=== PATIENT | female | born 1960 | race Caucasian/White ===

== ENCOUNTER 2017-05-07 10:22 | Inpatient (IN) | payer MEDICARE, OTHER ==
[~2017-05-07] VITALS: Ht 154.9 cm; Wt 53.5 kg
--- NOTE | 2017-05-07 10:43 | NUR ---
DR ROGERS AT THE BEDSIDE FOR EVAL AND EXAM.
[2017-05-07] MEDS ORDERED: LOSA1TAB39 PO (10:46)
[2017-05-07] MEDS ORDERED: MULT1TAB73 PO (10:46)
[2017-05-07] MEDS ORDERED: ASPI81TA31 PO (10:46)
[2017-05-07] MEDS ORDERED: SYMBICORT INH (10:46)
[2017-05-07] MEDS ORDERED: VENL75CA62 PO (10:46)
[2017-05-07] MEDS ORDERED: OXYB5TAB29 PO (10:46)
[2017-05-07] MEDS ORDERED: BACL10TA PO (10:46)
[2017-05-07] MEDS ORDERED: MELA5TAB PO (10:46)
[2017-05-07] MEDS ORDERED: HYDR-551 PO (10:46)
[2017-05-07] MEDS ORDERED: SPIRIVA INH (10:46)
[2017-05-07] MEDS ORDERED: ATOR40TA PO (10:46)
[2017-05-07] MEDS ORDERED: ESOM40CA PO (10:46)
[2017-05-07] MEDS ORDERED: IV NORMAL SALINE 500 ML BAG IV ONE (11:00)
[2017-05-07 11:13] LABS: BASOPHILS % (AUTO) 0.6 % (0.0-2.0); EOSINOPHILS # (AUTO) 0.1 K/uL (0.0-0.7); EOSINOPHILS % (AUTO) 1.5 % (0.0-7.0); HEMATOCRIT 41.5 % (31.2-41.9); HEMOGLOBIN 14.3 g/dL (10.9-14.3); LYMPHOCYTES # (AUTO) 0.9 K/uL (20.0-40.0); MEAN CORPUSCULAR HEMOGLOBIN 32.5 uug (24.7-32.8); MEAN CORPUSCULAR HGB CONC 35 g/dL (32.3-35.6); MEAN CORPUSCULAR VOLUME 94.3 fL (75.5-95.3); MONOCYTES # (AUTO) 0.5 K/uL (2.0-10.0); NEUTROPHILS # (AUTO) 6.1 K/uL (1.8-8.9); NEUTROPHILS % (AUTO) 79.9 % (38.5-71.5); PLATELET COUNT (AUTO) 244 K/uL (179-408); WHITE BLOOD COUNT (AUTO) 7.7 K/uL (3.8-11.8)
[2017-05-07 11:27] LABS: CREATININE 0.5 mg/dL (0.6-1.3); POTASSIUM 3.7 mmol/L (3.5-5.1)
--- NOTE | 2017-05-07 12:00 | NUR ---
BELONGING LIST COMPLETED AND PLACED IN THE CHART. NOT CANDIDATE FOR MRSA.
[2017-05-07 12:37] LABS: *BLOOD, URINE NEGATIVE (NEGATIVE); *CLARITY,URINE CLEAR (CLEAR); *COLOR,URINE YELLOW (YELLOW); *KETONES,URINE NEGATIVE (NEGATIVE); *PROTEIN,URINE NEGATIVE (NEGATIVE); *UROBILINOGEN,URINE 0.2 E.U./dl (NORMAL); LEUKOCYTE ESTERASE ,URINE NEGATIVE (NEGATIVE); NITRITE, URINE NEGATIVE (NEGATIVE); UGLUCOSE NEGATIVE (NEGATIVE)
[2017-05-07 12:39] LABS: *BILIRUBIN,URIN 1+ (NEGATIVE)
[2017-05-07 12:49] LABS: BACTERIA,URINE FEW /HPF (NONE SEEN); RBC,URINE 0-3 /HPF (0-3); SQUAMOUS EPITHELIAL CELL,UR FEW /HPF (NONE SEEN); WBC,URINE 0-3 /HPF (0-3)
[2017-05-07 13:14] VITALS: BP 105/66
[2017-05-07 15:46] VITALS: BP 111/73
[2017-05-07] MEDS ORDERED: HYDROCODONE/APAP 5-325MG TABLET PO PRN (16:15)
[2017-05-07] MEDS: NICOTINE 7 MG/24HR PATCH TD SCH (16:15)
[2017-05-07] MEDS ORDERED: IPRATROPIUM BROMIDE 0.5 MG/2.5 ML NEBU NEB PRN (19:00)
[2017-05-07] MEDS ORDERED: HYDROCODONE/APAP 7.5-325MG TABLET PO PRN (19:00)
[2017-05-07] MEDS ORDERED: ALBUTEROL SULFATE 2.5 MG/3 ML NEBU NEB PRN (19:00)
[2017-05-07] MEDS ORDERED: MAGNESIUM HYDROXIDE 30 ML LIQUID UDC PO PRN (19:15)
[2017-05-07] MEDS ORDERED: ONDANSETRON 4 MG/2 ML VIAL IV PRN (19:15)
[2017-05-07] MEDS ORDERED: ACETAMINOPHEN 325 MG TABLET PO PRN (19:15)
[2017-05-07] MEDS ORDERED: Z GUARD REMEDY PASTE 57 GM TUBE TOP PRN (19:15)
[2017-05-07 19:52] VITALS: BP 98/56
[2017-05-07 21:00] VITALS: BP 98/56
[2017-05-07] MEDS ORDERED: FLUTICASONE/SALMETEROL 250/50 INHALER INH SCH (21:00)
[2017-05-07 22:12] VITALS: BP 117/72
[2017-05-07] MEDS: HYDROCODONE/APAP 5-325MG TABLET PO PRN (22:12)
[2017-05-08] VITALS (8 sets, daily range): BP systolic 99–125; BP diastolic 62–70
[2017-05-08] MEDS: HYDROCODONE/APAP 5-325MG TABLET PO PRN ×6 (02:29→22:08)
--- NOTE | 2017-05-08 06:38 | NUR ---
END OF SHIFT SUMMERY: Pt is resting in bed, no acute distress noted. no episodes of N/V throughout shift. 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 Complained of chronic moderate pain on the Left shoulder, norco was given with some relief. fall precautions are implemented. all needs attended. Will cont to monitor and endorse pt to the next nurse.
[2017-05-08 06:52] LABS: BASOPHILS % (AUTO) 0.6 % (0.0-2.0); EOSINOPHILS # (AUTO) 0.4 K/uL (0.0-0.7); EOSINOPHILS % (AUTO) 6.9 % (0.0-7.0); HEMATOCRIT 41.2 % (31.2-41.9); HEMOGLOBIN 13.8 g/dL (10.9-14.3); LYMPHOCYTES # (AUTO) 1.7 K/uL (20.0-40.0); LYMPHOCYTES % (AUTO) 32.7 % (20.5-51.5); MEAN CORPUSCULAR HEMOGLOBIN 31.8 uug (24.7-32.8); MEAN CORPUSCULAR HGB CONC 34 g/dL (32.3-35.6); MONOCYTES # (AUTO) 0.6 K/uL (2.0-10.0); MONOCYTES % (AUTO) 11.2 % (0.0-11.0); NEUTROPHILS # (AUTO) 2.5 K/uL (1.8-8.9); NEUTROPHILS % (AUTO) 48.6 % (38.5-71.5); PLATELET COUNT (AUTO) 239 K/uL (179-408); RED BLOOD CELL COUNT(AUTO) 4.34 MIL/uL (3.63-4.92)
[2017-05-08 07:02] LABS: WHITE BLOOD COUNT (AUTO) 5.3 K/uL (3.8-11.8)
[2017-05-08 07:03] LABS: BILIRUBIN,TOTAL 0.3 mg/dL (0.2-1.0); CREATININE 0.5 mg/dL (0.6-1.3); MAGNESIUM 1.8 mg/dL (1.8-2.4); POTASSIUM 3.8 mmol/L (3.5-5.1); TOTAL PROTEIN, SERUM 6.2 g/dL (6.4-8.2)
[2017-05-08] MEDS: FLUTICASONE/VILANTEROL 1 EACH BLST.W.DEV INH SCH (08:11)
[2017-05-08] MEDS: LOSARTAN POTASSIUM 50 MG TABLET PO SCH (08:12)
[2017-05-08] MEDS: OXYBUTYNIN XL 5 MG TABSR PO SCH (08:12)
[2017-05-08] MEDS: NICOTINE 7 MG/24HR PATCH TD SCH (08:12)
[2017-05-08] MEDS: VENLAFAXINE XR 75 MG CAP.SR.24H PO SCH ×2 (08:13→16:38)
[2017-05-08] MEDS: ASPIRIN 81 MG TAB.CHEW PO SCH (08:13)
[2017-05-08] MEDS: ATORVASTATIN 40 MG TABLET PO SCH (08:13)
[2017-05-08] MEDS: NITROFURANTOIN/NITROFURAN MAC 100 MG CAPSULE PO SCH ×2 (15:33→20:08)
--- NOTE | 2017-05-08 19:30 | NUR ---
PT IN ROOM ALERT AWAKE IN NO ACUTE DISTRESS. NO C/O PAIN OR INCREASED WEAKNESS TO LEFT FOOT. ABLE TO FOLLOW SIMPLE COMMANDS. 3 SIDE RAILS RAISED AND CALL LIGHT PLACED WITHIN REACH. NO REACTION TO RECENT MACROBID ABX THERAPY. CONTINUE TO MONITOR. SISTER AT BEDSIDE.
[2017-05-08] MEDS: ZOLPIDEM 5 MG TABLET PO PRN (20:13)
--- NOTE | 2017-05-09 01:00 | NUR ---
Pt asleep in room. No acute distress or pain at this time. Continue to monitor.
[2017-05-09 04:00] VITALS: BP 120/70
[2017-05-09] MEDS: HYDROCODONE/APAP 5-325MG TABLET PO PRN ×4 (05:17→20:29)
--- NOTE | 2017-05-09 06:00 | NUR ---
Pt in room asleep. Manquin effective in relieving pain to left arm. Able to use call light as needed. Pt reminded to increase fluids to prevent constipation. Prune juice at bedside. Continue to monitor.
[2017-05-09 06:58] LABS: BASOPHILS % (AUTO) 0.6 % (0.0-2.0); EOSINOPHILS # (AUTO) 0.3 K/uL (0.0-0.7); EOSINOPHILS % (AUTO) 5.2 % (0.0-7.0); HEMATOCRIT 39.3 % (31.2-41.9); HEMOGLOBIN 13.2 g/dL (10.9-14.3); LYMPHOCYTES # (AUTO) 1.7 K/uL (20.0-40.0); LYMPHOCYTES % (AUTO) 28.1 % (20.5-51.5); MEAN CORPUSCULAR HEMOGLOBIN 31.9 uug (24.7-32.8); MEAN CORPUSCULAR HGB CONC 34 g/dL (32.3-35.6); MEAN CORPUSCULAR VOLUME 94.6 fL (75.5-95.3); MONOCYTES # (AUTO) 0.6 K/uL (2.0-10.0); MONOCYTES % (AUTO) 10.3 % (0.0-11.0); NEUTROPHILS # (AUTO) 3.5 K/uL (1.8-8.9); NEUTROPHILS % (AUTO) 55.8 % (38.5-71.5); PLATELET COUNT (AUTO) 215 K/uL (179-408); RED BLOOD CELL COUNT(AUTO) 4.15 MIL/uL (3.63-4.92); WHITE BLOOD COUNT (AUTO) 6.2 K/uL (3.8-11.8)
[2017-05-09 07:08] LABS: CREATININE 0.5 mg/dL (0.6-1.3); MAGNESIUM 1.9 mg/dL (1.8-2.4); PHOSPHOROUS 3.6 mg/dL (2.5-4.9); POTASSIUM 3.7 mmol/L (3.5-5.1)
[2017-05-09] MEDS: NICOTINE 7 MG/24HR PATCH TD SCH (09:09)
[2017-05-09] MEDS: NITROFURANTOIN/NITROFURAN MAC 100 MG CAPSULE PO SCH ×2 (09:10→20:28)
[2017-05-09] MEDS: OXYBUTYNIN XL 5 MG TABSR PO SCH (09:10)
[2017-05-09] MEDS: ASPIRIN 81 MG TAB.CHEW PO SCH (09:10)
[2017-05-09] MEDS: ATORVASTATIN 40 MG TABLET PO SCH (09:10)
[2017-05-09] MEDS: LOSARTAN POTASSIUM 50 MG TABLET PO SCH (09:14)
[2017-05-09] MEDS: VENLAFAXINE XR 75 MG CAP.SR.24H PO SCH ×2 (09:14→17:52)
[2017-05-09] MEDS: FLUTICASONE/VILANTEROL 1 EACH BLST.W.DEV INH SCH (09:16)
[2017-05-09 11:34] VITALS: BP 122/74
[2017-05-09 15:56] VITALS: BP 131/71
--- NOTE | 2017-05-09 19:30 | NUR ---
PT IN ROOM ALERT AWAKE IN NO ACUTE DISTRESS. CONTINUES TO HAVE PAIN TO LEFT UPPER ARM AND REQUESTING NORCO AT NEXT AVAILABLE TIME TO BE GIVEN. ABLE TO FOLLOW SIMPLE COMMANDS WITHOUT DIFFICULTY INCLUDING PASSIVE ROM. CALL LIGHT PLACED WITHIN REACH. CONTINUE TO MONITOR. ADVISED PT TO INFORM FOR ANY ASSISTANCE IN NEED OF VOIDING.
[2017-05-09 20:00] VITALS: BP 117/69
[2017-05-09] MEDS: ZOLPIDEM 5 MG TABLET PO PRN (21:22)
--- NOTE | 2017-05-10 01:00 | NUR ---
Pt in room asleep in no acute distress. No pain noted at this time. Continue to monitor.
[2017-05-10] MEDS: HYDROCODONE/APAP 5-325MG TABLET PO PRN ×3 (04:05→16:13)
--- NOTE | 2017-05-10 04:14 | NUR ---
Pt's IV site removed. Pt refused for reinsertion. [place] PO given for pain to left upper arm 03/03. No acute distress at this time. Continue to monitor. V/s are WNL.
--- NOTE | 2017-05-10 05:00 | NUR ---
Pt in room asleep and in no c/o pain at this time. [place] PO was given recently and was effective. Pt aware to avoid standing on left foot and to request for assistance when needed. Call light placed within reach. Continue to monitor.
[2017-05-10 06:37] VITALS: BP 136/72
[2017-05-10 07:31] LABS: CREATININE 0.6 mg/dL (0.6-1.3); PHOSPHOROUS 3.7 mg/dL (2.5-4.9); POTASSIUM 4.5 mmol/L (3.5-5.1)
[2017-05-10 07:37] LABS: BASOPHILS % (AUTO) 0.6 % (0.0-2.0); EOSINOPHILS # (AUTO) 0.4 K/uL (0.0-0.7); EOSINOPHILS % (AUTO) 4.7 % (0.0-7.0); HEMATOCRIT 40.7 % (31.2-41.9); HEMOGLOBIN 13.8 g/dL (10.9-14.3); LYMPHOCYTES # (AUTO) 1.1 K/uL (20.0-40.0); LYMPHOCYTES % (AUTO) 14.4 % (20.5-51.5); MEAN CORPUSCULAR HEMOGLOBIN 32.2 uug (24.7-32.8); MEAN CORPUSCULAR HGB CONC 34 g/dL (32.3-35.6); MEAN CORPUSCULAR VOLUME 94.9 fL (75.5-95.3); MONOCYTES # (AUTO) 0.7 K/uL (2.0-10.0); MONOCYTES % (AUTO) 9.2 % (0.0-11.0); NEUTROPHILS # (AUTO) 5.4 K/uL (1.8-8.9); NEUTROPHILS % (AUTO) 71.1 % (38.5-71.5); PLATELET COUNT (AUTO) 215 K/uL (179-408); WHITE BLOOD COUNT (AUTO) 7.5 K/uL (3.8-11.8)
--- NOTE | 2017-05-10 07:40 | NUR ---
PT IN ROOM ALERT AWAKE IN NO ACUTE DISTRESS. NO C/O PAIN OR INCREASED WEAKNESS TO LEFT FOOT. ABLE TO FOLLOW SIMPLE COMMANDS. CALL LIGHT PLACED WITHIN REACH. CONTINUE TO MONITOR.
[2017-05-10] MEDS: OXYBUTYNIN XL 5 MG TABSR PO SCH (08:09)
[2017-05-10] MEDS: LOSARTAN POTASSIUM 50 MG TABLET PO SCH (08:09)
[2017-05-10] MEDS: VENLAFAXINE XR 75 MG CAP.SR.24H PO SCH ×2 (08:09→16:05)
[2017-05-10] MEDS: NITROFURANTOIN/NITROFURAN MAC 100 MG CAPSULE PO SCH (08:09)
[2017-05-10] MEDS: NICOTINE 7 MG/24HR PATCH TD SCH (08:09)
[2017-05-10] MEDS: ATORVASTATIN 40 MG TABLET PO SCH (08:09)
[2017-05-10] MEDS: ASPIRIN 81 MG TAB.CHEW PO SCH (08:09)
[2017-05-10] MEDS: FLUTICASONE/VILANTEROL 1 EACH BLST.W.DEV INH SCH (08:13)
[2017-05-10 11:19] VITALS: BP 104/75
[2017-05-10 15:40] VITALS: BP 133/92
--- NOTE | 2017-05-10 17:09 | NUR ---
d/c orders received noted and carried out,rn report and discharge instructions given to the long term.pt left the facility via ambulances in stable condition.
== END 2017-05-10 17:17 | DRG 690 ==
LOC: ER 10:22 → TELE 12:14 → MED 05-08 12:22
PROVIDERS: ADMIT Nurse Practitioner Acute Care; ATTEND Nurse Practitioner Acute Care
DX: N39.0 Urinary tract infection, site not specified (principal); E44.1 Mild protein-calorie malnutrition; I69.354 Hemiplegia and hemiparesis following cerebral infarction affecting left non-dominant side; R53.1 Weakness; E78.5 Hyperlipidemia, unspecified; K21.9 Gastro-esophageal reflux disease without esophagitis; S27.0XXD Traumatic pneumothorax, subsequent encounter; W19.XXXD Unspecified fall, subsequent encounter; S42.211D Unspecified displaced fracture of surgical neck of right humerus, subsequent encounter for fracture with routine healing; S42.032D Displaced fracture of lateral end of left clavicle, subsequent encounter for fracture with routine healing; Z79.899 Other long term (current) drug therapy; Z79.82 Long term (current) use of aspirin; R29.6 Repeated falls; J44.9 Chronic obstructive pulmonary disease, unspecified; Z68.22 Body mass index [BMI] 22.0-22.9, adult; S22.42XD Multiple fractures of ribs, left side, subsequent encounter for fracture with routine healing
CPT/HCPCS: 36415; 70030-TC; 70450; 71010; 83735; 84100; 85025; 85730; 87086; 93005; 97165; 97535; A4663; A9150; J7040

== ENCOUNTER 2017-11-17 10:58 | Emergency (ER) | payer MEDICARE, MEDICAID ==
[~2017-11-17] VITALS: Ht 154.9 cm; Wt 47.6 kg
[~2017-11-17 10:58] MED LIST: ASPI81TA31 PO; ATOR40TA PO; BACL10TA PO; ESOM40CA PO; HYDR-551 PO; LOSA1TAB39 PO; MELA5TAB PO; MULT1TAB73 PO; OXYB5TAB29 PO; SPIRIVA INH; SYMBICORT INH; VENL75CA62 PO
[2017-11-17] MEDS ORDERED: VENL150T PO (11:42)
[2017-11-17] MEDS ORDERED: LOSA1TAB3 PO (11:42)
[2017-11-17] MEDS ORDERED: TIOT18CA4 IH (11:42)
[2017-11-17] MEDS ORDERED: DIPH25CA46 PO (11:42)
[2017-11-17] MEDS ORDERED: CHOL200078 PO (11:42)
[2017-11-17] MEDS ORDERED: BUDE10.22 IH (11:42)
[2017-11-17] MEDS ORDERED: ASPI-869 PO (11:42)
--- NOTE | 2017-11-17 12:05 | NUR ---
Dr Cesar Monson is here & requested scalpel/blade #15 (to scrape?). No new MD orders at this time.
--- NOTE | 2017-11-17 12:11 | NUR ---
Dr Cesar Monson came & scraped the scabbed wounds & Dr Monson personally sent the specimen to our laboratory.
--- NOTE | 2017-11-17 12:32 | NUR ---
Patient is discharged to assisted home [facility] in stable conditon. Written and verbal after care instructions given to patient. Patient verbalizes understanding of instructions. S ambulance [id number]. Trip#[id number] per [facility] dispatcher.
--- NOTE | 2017-11-17 12:47 | NUR ---
[facility] unit 111 with EMT Cyrus accepted hands off report. [employer] tried to call [facility] using the internet information but the telephone info is a non-working number. Patient can not recall the telephone number@this time.
== END 2017-11-17 13:00 | disposition home or self-care (01) ==
LOC: ER 11:01
DX: B86 Scabies (principal); I10 Essential (primary) hypertension; E78.00 Pure hypercholesterolemia, unspecified; J44.9 Chronic obstructive pulmonary disease, unspecified; K21.9 Gastro-esophageal reflux disease without esophagitis; F17.210 Nicotine dependence, cigarettes, uncomplicated; Z79.82 Long term (current) use of aspirin; Z79.891 Long term (current) use of opiate analgesic; Z79.51 Long term (current) use of inhaled steroids; Z79.899 Other long term (current) drug therapy
CPT/HCPCS: 99283; A4663